=== PATIENT | female | born 1995 | race Hispanic/Latino ===

== ENCOUNTER 2022-09-02 20:18 | Emergency (ER) | payer OTHER ==
[~2022-09-02] VITALS: Ht 154.9 cm; Wt 103.4 kg
[2022-09-02] MEDS ORDERED: SODIUM CHLORIDE 0.9% 250ML 250 ML IV ONE (21:00)
[2022-09-02 21:12] LABS: BASOPHILS % 0.5 % (0.0-1.0); EOSINOPHILS # (AUTO) 0.2 (0.0-0.4); EOSINOPHILS % 2.3 % (0.0-6.0); LYMPHOCYTES % 29.9 % (18.0-39.1); MEAN CORPUSCULAR HEMOGLOBIN 18.3 pg (28-32); MEAN CORPUSCULAR HGB CONC 26.8 g/dL (31-35); MEAN CORPUSCULAR VOLUME 68.3 fL (81-99); MONOCYTES # (AUTO) 0.3 (0.2-0.8); MONOCYTES % 5.2 % (4.4-11.3); NEUTROPHILS % 61.9 % (38.7-80.0); PLATELET COUNT 360 x10e3/uL (140-360); RED CELL DISTRIBUTION WIDTH 17.1 % (11.7-14.4)
[2022-09-02 21:15] LABS: HEMATOCRIT 19.8 % (34.2-44.1); HEMOGLOBIN 5.3 g/dL (12.0-16.0)
[2022-09-02 21:33] LABS: CALCIUM 9.2 mg/dL (8.4-10.2); CREATININE, SERUM 0.59 mg/dL (0.57-1.11)
[2022-09-03 03:44] VITALS: BP 125/75; PULSE 64; RESP 16; TEMP 98.2; O2SAT 100
[2022-09-03] MEDS ORDERED: ACETAMINOPHEN 325 MG TAB PO ONE (04:45)
== END 2022-09-03 04:43 | disposition home or self-care (01) ==
LOC: ER 20:20
DX: D64.9 Anemia, unspecified (principal)
CPT/HCPCS: 36415; 80048; 85025; 86850; 86900; 86920; 99283; J7050; P9016